=== PATIENT | male | born 2000 | race Two or more races ===

== ENCOUNTER 2024-12-31 14:27 | Emergency (ER) | payer MEDICAID, SELFPAY ==
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
[2024-12-31 14:37] VITALS: BP 128/72; BP 134/72; PULSE 69; PULSE 96; RESP 18; TEMP 36.8; O2SAT 97; O2SAT 98; BMI 57.2
[2024-12-31 14:42] VITALS: BP 134/72; PULSE 69; RESP 18; TEMP 36.8; O2SAT 97
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
[2024-12-31] MEDS: oxyCODONE HCl Immed Release 5 MG TABLET 10 MG PO (15:19)
[2024-12-31 18:21] VITALS: BP 132/78; PULSE 70; RESP 16; TEMP 36.7; O2SAT 97
[2024-12-31] MEDS: Oxymetazoline HCl 0.05 % Nasal 15 ML SPRAY 2 SPRAY NOSTRIL-B (18:22)
[2024-12-31 20:30] VITALS: BP 129/73; PULSE 64; RESP 20; TEMP 36.7; O2SAT 97
[2024-12-31 20:31] VITALS: BP 129/73; PULSE 64; RESP 20; TEMP 36.7; O2SAT 97
== END 2024-12-31 20:35 | disposition home or self-care (01) ==
PROVIDERS: Emergency Provider Emergency Medicine
DX: S01.21XA Laceration without foreign body of nose, initial encounter (principal); S69.91XA Unspecified injury of right wrist, hand and finger(s), initial encounter; R51.9 Headache, unspecified; M79.601 Pain in right arm; K02.9 Dental caries, unspecified; Y04.2XXA Assault by strike against or bumped into by another person, initial encounter; Y93.9 Activity, unspecified; Y92.9 Unspecified place or not applicable; Y99.8 Other external cause status; Z23 Encounter for immunization
CPT/HCPCS: 12051; 70450; 70486; 73110; 90471; 96372; 99284; J1885

== ENCOUNTER → 2024-12-31 14:50 | Outpatient (BNV) | payer MEDICAID, SELFPAY | PROVIDERS: Emergency Provider Emergency Medicine; Visit Provider Radiology Diagnostic Ultrasound | DX: S02.5XXA Fracture of tooth (traumatic), initial encounter for closed fracture (principal); S09.90XA Unspecified injury of head, initial encounter; S69.91XA Unspecified injury of right wrist, hand and finger(s), initial encounter; Y04.8XXA Assault by other bodily force, initial encounter | CPT/HCPCS: 70450; 70486; 73110 ==